=== PATIENT | male | born 1970 | race Caucasian/White ===

== ENCOUNTER 2018-12-27 06:18 | Day surgery (SDC) | payer OTHER ==
[~2018-12-27] VITALS: Ht 182.9 cm; Wt 145.1 kg
[2018-12-27 06:30] VITALS: BP 152/91
[2018-12-27 12:13] VITALS: BP 110/63
== END 2018-12-27 11:30 | disposition home or self-care (01) ==
LOC: DS 06:18 → OR 07:30 → DS 07:30 → OR 09:00 → DS 11:30
DX: M77.12 Lateral epicondylitis, left elbow (principal); E66.8 Other obesity; G47.33 Obstructive sleep apnea (adult) (pediatric); K21.9 Gastro-esophageal reflux disease without esophagitis; I12.9 Hypertensive chronic kidney disease with stage 1 through stage 4 chronic kidney disease, or unspecified chronic kidney disease; E11.22 Type 2 diabetes mellitus with diabetic chronic kidney disease; N18.9 Chronic kidney disease, unspecified; I25.2 Old myocardial infarction; G40.109 Localization-related (focal) (partial) symptomatic epilepsy and epileptic syndromes with simple partial seizures, not intractable, without status epilepticus; M19.90 Unspecified osteoarthritis, unspecified site; J45.909 Unspecified asthma, uncomplicated; Z68.41 Body mass index [BMI] 40.0-44.9, adult; Z79.899 Other long term (current) drug therapy; Z98.890 Other specified postprocedural states
CPT/HCPCS: J0330; J0690; J1170; J2250; J2405; J2704; J3010; J3490; J7120